=== PATIENT | male | born 1995 | race Caucasian/White ===

== ENCOUNTER 2017-11-22 12:21 | Emergency (ER) | payer BC ==
[~2017-11-22] VITALS: Ht 185.4 cm; Wt 89.0 kg
[2017-11-22 12:29] VITALS: TEMP 36.8; Ht 185.4 cm; Wt 89.0 kg
[2017-11-22] MEDS ORDERED: MoRPHine SULFATE 10 MG/ML CARP/VIAL ONE (12:40)
[2017-11-22] MEDS ORDERED: FENTANYL CITRATE INJ 50 MCG/1 ML 2 ML VIAL ONE (12:40)
[2017-11-22] MEDS ORDERED: ONDANSETRON INJ 2 MG/ML 2 ML VIAL ONE (12:41)
--- NOTE | 2017-11-22 13:04 | EMERGENCY ROOM VISIT NOTE ---
History Report prepared by Jeriibshakira: Lance Webb Under the Supervision of: Dr. Alfredo Prieto D.O. First contact with patient: 12:39 Chief Complaint: SHOULDER DISLOCATION Stated Complaint: SHOULDER PAIN History of Present Illness The patient is a 22 year old male who presents to the Emergency Room with complaints of constant pain in the right shoulder that began shortly prior to arrival. The patient states that he was playing basketball today when he reached out to grab the ball and the shoulder dislocated. He has dislocated the right shoulder 3 times in the past. He did have labrum surgery on the right shoulder and this is the first dislocation since that surgery. He denies any other injuries/complaints at this time. Source of History: patient Onset: Shortly IRON CASTER Position: shoulder (right) Quality: other (Dislocation) Timing: constant Review of Systems See HPI for pertinent positives & negatives. A total of 6 systems reviewed and were otherwise negative. Past Medical & Surgical Surgical Problems: (1) Status post labral repair of shoulder Family History No pertinent family history secondary to case. Social History Drug Use: none Marital Status: single Housing Status: lives with roommate Occupation Status: [employer] student Current/Historical Medications No Active Prescriptions or Reported Meds Allergies Coded Allergies: No Known Allergies (Unverified , 11/22/17) Physical Exam Vital Signs Date Time Temp Pulse Resp B/P (MAP) Pulse Ox O2 Delivery O2 Flow Rate FiO2 11/22/17 13:40 88 18 142/78 100 11/22/17 12:29 36.8 102 18 140/92 93 Room Air Physical Exam CONSTITUTIONAL/VITAL SIGNS: Reviewed / noted above. GENERAL: Non-toxic in appearance. INTEGUMENTARY: Warm, dry, and [place]. HEAD: Normocephalic. EYES: without scleral icterus or trauma. ENT/OROPHARYNX: clear and moist. LYMPHADENOPATHY/NECK: Is supple without lymphadenopathy or meningismus. RESPIRATORY: Lungs clear and equal. CARDIOVASCULAR: Regular rate and rhythm. GI/ABDOMEN: Soft and nontender. No organomegaly or pulsatile mass. No rebound or guarding. Normal bowel sounds. EXTREMITIES: The patient is holding the right arm close to his body in a sling. There is a palpable deformity in the right anterior shoulder that is consistent with an anterior shoulder dislocation. BACK: No CVA tenderness. NEUROLOGICAL: Intact without focal deficits. PSYCHIATRIC: normal affect. MUSCULOSKELETAL: Normally developed with good muscle tone. Medical Decision & Procedures ER Provider Diagnostic Interpretation: Radiology results as stated below per my review and radiologist interpretation: R SHOULDER MIN 2 VIEWS ROUTINE CLINICAL HISTORY: pain pain COMPARISON: None. DISCUSSION: The bones and joint spaces appear intact. There is no evidence of fracture, dislocation or bony disease. There is no evidence for soft tissue swelling. Probable prior operative change to the anterior glenoid labrum IMPRESSION: Anatomic alignment post reduction. The above report was generated using voice recognition software. It may contain grammatical, syntax or spelling errors. Electronically signed by: Leonel Rivero M.D. 11/22/2017 1:02 PM Dictated Date/Time: 11/22/2017 1:01 PM Medications Administered Medications (Trade) Dose Ordered Sig/Maria Guadalupe Route Start Time Stop Time Status Last Admin Dose Admin Oxycodone/ Acetaminophen (Percocet 5/ 325MG Home Pack) 1 homepack UD ONCE PO 11/22/17 13:15 11/22/17 13:16 DC 11/22/17 13:35 1 HOMEPACK Procedure Shoulder relocation/reduction: The patient was placed in a supine position on the bed. Slow and steady traction was used and a downward direction. The shoulder/arm was manipulated and the shoulder reduced without difficulty. Patient tolerated this well without significant complication or pain. The patient was put in a left arm sling. X-ray following reduction reveals a reduced left shoulder. ED Course 1242: Previous medical records were reviewed. The patient was evaluated in room B6. A complete history and physical examination was performed. 1315: Ordered Percocet 1 homepack PO. Medical Decision Differential diagnosis: Etiologies such as fracture, dislocation, neurovascular compromise, compartment syndrome, soft tissue injury, as well as others were entertained. This is a 22-year-old male who presents to the ED with a chief complaint of right shoulder dislocation. The patient states that he was playing basketball when he struck another persons arm causing his shoulder to dislocate. He has had 2 or 3 prior dislocations. His exam is consistent with an anterior dislocation. The patient was placed in a prone position and the shoulder was relocated. The patient had improvement of symptoms. He did receive IV morphine and fentanyl by EMS. The patient was placed in an arm sling. X-ray shows an appropriately located right shoulder. He is felt to be stable for discharge. Medication Reconcilliation Current Medication List: was personally reviewed by me Blood Pressure Screening Patient's blood pressure: Elevated blood pressure Blood pressure disposition: Elevated BP felt to be situational Impression Primary Impression: Dislocation of shoulder, right, closed Scribe Attestation The scribe's documentation has been prepared under my direction and personally reviewed by me in its entirety. I confirm that the note above accurately reflects all work, treatment, procedures, and medical decision making performed by me. Departure Information Dispostion Home / Self-Care Prescriptions No Active Prescriptions or Reported Meds Referrals No Doctor, Assigned (PCP) Patient Instructions ED Dislocation Shoulder Redu, My [facility] Additional Instructions Take Tylenol/Motrin as needed for pain. Follow-up with your orthopedist or for further evaluation later this week. Keep sling in place for 2-3 days for comfort. May start using the shoulder gently after this.
[2017-11-22] MEDS ORDERED: PERCOCET HOME PACK PO ONE (13:15)
[2017-11-22 13:40] VITALS: BP 142/78; PULSE 88; O2SAT 100
== END 2017-11-22 13:40 | disposition home or self-care (01) ==
LOC: C.EDB 12:24
DX: S43.014A Anterior dislocation of right humerus, initial encounter (principal); W51.XXXA Accidental striking against or bumped into by another person, initial encounter; Y92.39 Other specified sports and athletic area as the place of occurrence of the external cause; Y93.67 Activity, basketball